=== PATIENT | male | born 1980 | race Caucasian/White ===

== ENCOUNTER → 2022-08-29 | Outpatient (CLI) | payer OTHER ==
--- NOTE | 2022-08-29 15:47 | P.SLEEP ---
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 The patient currently is living in [facility] and within the next 6-7 months he is going to relocate to the [facility]. The patient states that he has been snoring loud and his has been complaining of his loud snore. More recently he has also noted that he is having issues with staying awake on the job and he is having some increased fatigue especially during working hours. Based on that, he was referred to me for sleep apnea evaluation. He is drinking 2 cups of coffee in the morning and additional 1 or 2 cups during the day. He junk cell: The weekends. Is a chronic smoker. He sn ores loud. No reported witnessed apneas. No insomnia. Denies having any episodes of choking or gasping for air during sleep. No major restlessness lower extremities no sleepwalking or sleep talking. No anxiety or panic attack. No history of depression. The patient is known to have Crohn's disease and the patient has lost weight in the past. His current weight is stable. He is going to bed on 9:30 PM and he wakes up 6:30 AM in the morning. On weekends, he sleeps an hour longer. His current Dallas score is 11. He tries not to take any naps during the day. No sleep paralysis. No hallucinations. No previous history of motor vehicle accident because of feeling drowsy or sleepy. He doesn't take any medications for now. No other complaints otherwise. Review of Systems Constitutional: Reports daytime sleepiness, Reports fatigue Eyes: denies as per HPI, denies blurred vision, denies bulging eye, denies decreased vision, denies diplopia, denies discharge, denies dry eye, denies irritation, denies itching, denies pain, denies photophobia, denies loss of peripheral vision, denies loss of vision, denies tunnel vision/blind spots Ears: deny: decreased hearing, ear discharge, earache, tinnitus Ears, nose, mouth and throat: Reports ant. neck pain Breasts: absent: as per HPI, gynecomastia Respiratory: Reports sleep apnea Gastrointestinal: Reports as per HPI (History of Crohn's disease, currently inactive and stable) Genitourinary: Reports as per HPI Musculoskeletal: Reports as per HPI Musculoskeletal: absent: ankle pain, ankle stiffness, ankle swelling Integumentary: Reports as per HPI Neurological: Reports as per HPI Psychiatric: Reports as per HPI Endocrine: Reports as per HPI Hematologic/Lymphatic: Reports as per HPI Allergic/Immunologic: Reports as per HPI Past Medical History Additional Past Medical History / Comment(s): Crohn's disease, Additional Past Surgical History / Comment(s): Previous colonoscopy Past Anesthesia/Blood Transfusion Reactions: No Reported Reaction Smoking Status: Current every day smoker Past Alcohol Use History: Occasional Past Drug Use History: None Reported Medications and Allergies Home Medications and Allergies Comment(s): No medications for now Physical Exam BP is 152/88, pulse 86, respirations 16, temperature 97.5, weight is 210 pounds, body mass index is 26, oxygen saturations 98% on room air. The patient appeared well nourished and normally developed. Vital signs as documented. Head exam is unremarkable. No scleral icterus or corneal arcus noted. Neck is without jugular venous distension, thyromegaly, or carotid bruits. Carotid upstrokes are brisk bilaterally. The patient has a Mallampati class II, no overbite, no micrognathia. Lungs are clear to auscultation and percussion. Cardiac exam reveals the PMI to be normally sized and situated. Rhythm is regular. First and second heart sounds normal. No murmurs, rubs or gallops. Abdominal exam reveals normal bowel sounds, no masses, no organomegaly and no aortic enlargement. Extremities are nonedematous and both femoral and pedal pulses are normal.Examination of the skin revealed no evidence of significant rashes, suspicious appearing nevi or other concerning lesions.Neurologically, the patient is awake and alert and the patient does not have any focal neurological deficit. Cranial nerves are essentially intact. Assessment and Plan Plan: Chronic hypersomnia/fatigue, Dallas score of 11 Loud snoring Sleep fragmentation Known history of ulcerative colitis, currently inactive and stable Chronic smoker No other major comorbidities Plan Overall clinical suspicion for obstructive sleep apnea is low We'll proceed with screening polysomnogram Maintain regular sleep schedule Maintain good sleep hygiene measures We'll continue to follow and make further recommendations based on results of the sleep study Sleep Note - Sleep Note Sleep Note: Temperature: Pulse Rate: Respiratory Rate: Blood Pressure: SpO2: Height: Weight: BMI: Neck Circumference:
== END ==
LOC: SLEEP 13:13
PROVIDERS: ATTEND Internal Medicine Critical Care Medicine
DX: G47.14 Hypersomnia due to medical condition (principal); F17.200 Nicotine dependence, unspecified, uncomplicated
CPT/HCPCS: 99202

== ENCOUNTER → 2023-07-26 | Outpatient (CLI) | payer OTHER ==
[2023-07-26 22:05] LABS: Basophils # (A) 0.04 X 10*3/uL (0.00-0.10); Basophils % (A) 0.4 %; Eosinophils # (A) 0.21 X 10*3/uL (0.04-0.35); Eosinophils % (A) 2.2 %; HCT 48.1 % (39.6-50.0); HGB 15.8 d/dL (13.0-17.0); Lymphocytes # (A) 1.85 X 10*3/uL (0.90-5.00); Lymphocytes % (A) 19.2 %; MCH 31.3 pg (27.0-32.0); MCHC 32.8 d/dL (32.0-37.0); MCV 95.4 FL (80.0-97.0); Mean Platelet Volume 12.8 FL (9.5-12.2); Monocytes # (A) 0.77 X 10*3/uL (0.20-1.00); NRBC Per 100 WBC 0 X 10*3/uL (0.00-0.01); Neutrophils # (A) 6.72 X 10*3/uL (1.80-7.70); Neutrophils % (A) 69.7 %; Platelet Count 212 X 10*3/uL (140-440); RBC 5.04 X 10*6/uL (4.40-5.60); RDW 13.2 % (11.5-14.5); WBC 9.64 X 10*3/uL (4.50-10.00)
[2023-07-26 22:52] LABS: ALT 31 U/L (10-49); AST 28 U/L (14-35); Albumin 4.4 d/dL (3.8-4.9); Albumin/Globulin Ratio 1.63 Ratio (1.60-3.17); Alkaline Phosphatase 64 U/L (41-126); BUN/Creat Ratio 9.09 Ratio (12.00-20.00); Calcium 9.7 mg/dL (8.7-10.3); Carbon Dioxide 26.1 mmol/L (21.6-31.8); Chloride 103 mmol/L (96-109); Globulin 2.7 d/dL (1.6-3.3); Glucose 125 mg/dL (70-110); Potassium 4.7 mmol/L (3.5-5.5); Sodium 140 mmol/L (135-145); Total Bilirubin 0.3 mg/dL (0.3-1.2); Total Protein 7.1 d/dL (6.2-8.2)
== END | disposition home or self-care (01) ==
LOC: LABWHC1 14:08
PROVIDERS: ATTEND Internal Medicine Hematology & Oncology
DX: K50.90 Crohn's disease, unspecified, without complications (principal)
CPT/HCPCS: 36415; 80053; 85025